=== PATIENT | male | born 1970 | race Caucasian/White ===

== ENCOUNTER 2016-07-17 09:11 | Emergency (ER) | payer OTHER ==
--- NOTE | 2016-07-17 10:21 | ED NURSING NOTES ---
Clinical Report - [facility]es [facility] [place] [address] 07/17/2016 9:15 [id number] TRI[facility] Triage time 09:25. Acuity: LEVEL 4. Chief Complaint: RIGHT UPPER EXTREMITY PAIN and NUMBNESS. Alert. No acute distress. RAMÓN COMA SCORE: [place] Coma Scale: 15- eyes open spontaneously (4); best verbal response- oriented x 4 (5); best motor response- obeys commands (6). --09:31 Talia Davies R.N. 09:25 07/17/16. BP: 137/84. HR: 65. RR: 16. O2 saturation: 95%. Temp: 97.9 F (oral). Pain level now: 06/15. --09:31 Talia Davies R.N. Weight: 111.5 kg stated. Height/Length: 71 inches Per Patient. BMI: 34.3. --09:28 Talia Davies R.N. Medications None. --09:27 Talia Davies R.N. Medication/allergy information source: the patient. --09:31 Talia Davies R.N. Allergies Penicillins. --09:27 Talia Davies R.N. History Arrived by private vehicle. Historian: patient. Unaccompanied. Primary physician (Kayla). An injury may have occurred. This occurred (about 1 month). 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 SOCIAL HX: Former smoker. No alcohol use or drug use. FALL RISK ASSESSMENT: Fall risk assessment completed. No fall risk identified. FUNCTIONAL ASSESSMENT: Functional assessment: no impairments noted. LEARNING NEEDS ASSESSMENT: The learning needs assessment revealed no barriers. --09:31 Talia Davies R.N. PROBLEMS: no known problems. ADDITIONAL SURGERIES: Rt hand. --09:28 Talia Davies R.N. Assessment GENERAL / NEURO / PSYCH: Alert. Oriented X 4. Appears in no acute distress. Patient appears calm and cooperative. RESPIRATORY: Respirations not labored. SKIN: Skin is warm and dry. --09:31 Talia Davies R.N. Interventions ID and allergy band on patient. To treatment room. --09:31 Talia Davies R.N. PHYSICAL ASSESSMENT 09:37 07/17/16. Ambulatory to room. Patient gowned. GENERAL / NEURO / PSYCH: Oriented X 4. Alert. Appears in no acute distress. EXTREMITIES: ( c/o pain in Rt wrist, moving up his Rt arm, states his Rt hand is "numb" "like it hasn't woken up this morning", stated this all starts "while I'm asleep"). SKIN: Skin is warm and dry. --09:37 Talia Davies R.N. NURSING PROGRESS NOTES 09:38 07/17/16. Call light placed in reach. Side rails up x 1. Bed placed in lowest position. Brakes of bed on. --09:38 Talia Davies R.N. 10:29 07/17/2016 Ibuprofen PO Tablets 800 mg given. Allergies verified and confirmed 5 rights. --10:34 Talia Davies R.N. 10:29 07/17/2016 Prednisone PO Tablets 60 mg given. Allergies verified and confirmed 5 rights. --10:34 Talia Davies R.N. 10:35. Velcro upper extremity splint applied to right wrist and left wrist by tech. Sensation intact and motor within normal limits. The patient is calm and resting quietly. Overall patient status is the same- he states feels the same. GENERAL / NEURO / PSYCH: Alert. Oriented X 4. RESPIRATORY: No respiratory distress. SKIN: Skin is warm and dry. --10:47 Talia Davies R.N. DISPOSITION / DISCHARGE Departure time: 1040. Condition at departure: stable. No learning barriers present. Discharge instructions provided and reviewed with the patient. Reviewed medication(s). Prescription(s) given to the patient. Activity restrictions (light lifting and rest) reviewed. Patient verbalized understanding. Written instructions provided in Egyptian. The patient was discharged home and unaccompanied at time of discharge. He left the Emergency Department ambulatory and via private vehicle. FALL RISK ASSESSMENT: Fall risk assessment completed. No fall risk identified. --10:46 Talia Davies R.N. 10:40 07/17/16. BP: 156/87. HR: 92. RR: 18. O2 saturation: 97% on room air. Temp: 98.4 F (oral). Pain level now: 07/15. --10:46 Talia Davies R.N. Locked/Released at 07/17/2016 10:48 by Talia Davies R.N.
--- NOTE | 2016-07-17 10:21 | ED CLINICAL REPORT ---
Clinical Report - Physicians/Mid Levels [facility] [address] [place] [address] 07/17/2016 9:15 Patient: EH WALKER Time Seen: 10:03 Jul 17 2016. Arrived- By private vehicle. Historian- patient. CPT: ER phys charges level 3 (#[id number]). HISTORY OF PRESENT ILLNESS Chief Complaint: UPPER EXTREMITY PAIN and ALTERED SENSATION and ; PROBLEM IN THE RIGHT UPPER EXTREMITY. Severity is described as being moderate in degree. It has become recently worse. The quality is noted to be aching and "pain". 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 Symptoms located in the area of the right forearm, right wrist and left wrist. No chest pain, difficulty breathing, swelling or motor loss. He has not had redness. Moderate sensory loss involving the right hand (on and off). Repetitive hand use at work. (Wakes up at night with pain and numbness in both hands/wrists.). Patient denies an injury. Similar symptoms previously: None. Recent medical care: Not recently seen/assessed. REVIEW OF SYSTEMS No fever, chills, headache or sore throat or throat. No cough, skin rash, enlarged lymph nodes, neck pain or abdominal pain. No nausea, vomiting, difficulty with urination, weakness or diabetic symptoms. No easy bruising or symptoms of hypothyroidism. All systems otherwise negative, except as recorded above. PAST HISTORY Rt hand surgery with pinning of finger. Problems: no known problems. Medications: None. Allergies: Penicillins. SOCIAL HISTORY Former smoker. No alcohol use or drug use. ADDITIONAL NOTES The nursing notes have been reviewed. PHYSICAL EXAM Vital Signs: 07/17/2016 09:25 BP: 137/84. HR: 65. RR: 16. O2 saturation: 95%. Temp: 97.9 F. Pain level now: 4/10. Appearance: Alert. Anxious. Patient in mild distress. Eyes: Eyes normal inspection. Neck: Normal inspection. Neck supple. (non-tender.). CVS: Normal heart rate and rhythm. Heart sounds normal. Respiratory: No respiratory distress. Back: Normal inspection. No tenderness. ROM normal. Skin: Skin intact. Skin warm. Normal skin color. Extremities: Right-sided and left-sided positive Tinel sign. Right wrist: moderate tenderness located in the volar aspect of the wrist. Neurovascular intact distally. (positive tinnels). No swelling, laceration, abrasion, ecchymosis or deformity. No joint effusion or limitation in ROM. Left wrist: mild tenderness located in the volar aspect of the wrist. Neurovascular intact distally. No swelling, laceration or abrasion. No joint effusion or limitation in ROM. Neuro: Oriented X 3. No motor deficit. No sensory deficit. Reflexes normal. PROGRESS AND PROCEDURES Course of Care: Pt with bilateral car pal tunnel, right greater than left. Splint applied to wrists. Pt will start meds and follow up with neurology. Patient/family counseled. Disposition: Discharged. Condition: stable. CLINICAL IMPRESSION Carpal tunnel syndrome right wrist and left wrist (right greater than left.). INSTRUCTIONS Wear canvas splint until better. Limit lifting. No strenuous activity. Warnings: Further evaluation is necessary. GENERAL WARNINGS: Return or contact your physician immediately if your condition worsens or changes unexpectedly, if not improving as expected, or if other problems arise. Prescription Medications: Ibuprofen 600mg tablets: take 1 tablet orally every 8 hours as needed for pain. Dispense thirty (30). No refills. prednisone 50 mg a day for 3 days. Follow-up: Follow up with a neurologist in one week. Call for the next available appointment. Understanding of the discharge instructions verbalized by patient. Follow-up with: Beto Garza MD, Family Practice, , [facility], [address] [place] [address], [facility] access hospital Follow up in one week. Call for an appointment. (Electronically signed by Kojo Estrada MD 07/17/2016 14:17)
--- NOTE | 2016-07-17 10:21 | ED CLINICAL REPORT ---
Clinical Report - Physicians/Mid Levels [facility] [address] [place] [address] 07/17/2016 9:15 Patient: EH WALKER Time Seen: 10:03 Jul 17 2016. Arrived- By private vehicle. Historian- patient. CPT: ER phys charges level 3 (#[id number]). HISTORY OF PRESENT ILLNESS Chief Complaint: UPPER EXTREMITY PAIN and ALTERED SENSATION and ; PROBLEM IN THE RIGHT UPPER EXTREMITY. Severity is described as being moderate in degree. It has become recently worse. The quality is noted to be aching and "pain". 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 Symptoms located in the area of the right forearm, right wrist and left wrist. No chest pain, difficulty breathing, swelling or motor loss. He has not had redness. Moderate sensory loss involving the right hand (on and off). Repetitive hand use at work. (Wakes up at night with pain and numbness in both hands/wrists.). Patient denies an injury. Similar symptoms previously: None. Recent medical care: Not recently seen/assessed. REVIEW OF SYSTEMS No fever, chills, headache or sore throat or throat. No cough, skin rash, enlarged lymph nodes, neck pain or abdominal pain. No nausea, vomiting, difficulty with urination, weakness or diabetic symptoms. No easy bruising or symptoms of hypothyroidism. All systems otherwise negative, except as recorded above. PAST HISTORY Rt hand surgery with pinning of finger. Problems: no known problems. Medications: None. Allergies: Penicillins. SOCIAL HISTORY Former smoker. No alcohol use or drug use. ADDITIONAL NOTES The nursing notes have been reviewed. PHYSICAL EXAM Vital Signs: 07/17/2016 09:25 BP: 137/84. HR: 65. RR: 16. O2 saturation: 95%. Temp: 97.9 F. Pain level now: 4/10. Appearance: Alert. Anxious. Patient in mild distress. Eyes: Eyes normal inspection. Neck: Normal inspection. Neck supple. (non-tender.). CVS: Normal heart rate and rhythm. Heart sounds normal. Respiratory: No respiratory distress. Back: Normal inspection. No tenderness. ROM normal. Skin: Skin intact. Skin warm. Normal skin color. Extremities: Right-sided and left-sided positive Tinel sign. Right wrist: moderate tenderness located in the volar aspect of the wrist. Neurovascular intact distally. (positive tinnels). No swelling, laceration, abrasion, ecchymosis or deformity. No joint effusion or limitation in ROM. Left wrist: mild tenderness located in the volar aspect of the wrist. Neurovascular intact distally. No swelling, laceration or abrasion. No joint effusion or limitation in ROM. Neuro: Oriented X 3. No motor deficit. No sensory deficit. Reflexes normal. PROGRESS AND PROCEDURES Course of Care: Pt with bilateral car pal tunnel, right greater than left. Splint applied to wrists. Pt will start meds and follow up with neurology. Patient/family counseled. Disposition: Discharged. Condition: stable. CLINICAL IMPRESSION Carpal tunnel syndrome right wrist and left wrist (right greater than left.). INSTRUCTIONS Wear canvas splint until better. Limit lifting. No strenuous activity. Warnings: Further evaluation is necessary. GENERAL WARNINGS: Return or contact your physician immediately if your condition worsens or changes unexpectedly, if not improving as expected, or if other problems arise. Prescription Medications: Ibuprofen 600mg tablets: take 1 tablet orally every 8 hours as needed for pain. Dispense thirty (30). No refills. prednisone 50 mg a day for 3 days. Follow-up: Follow up with a neurologist in one week. Call for the next available appointment. Understanding of the discharge instructions verbalized by patient. Follow-up with: Beto Garza MD, Family Practice, , [facility], [address] [place] [address], [facility] Follow up in one week. Call for an appointment. (Electronically signed by Kojo Estrada MD 07/17/2016 14:17)
--- NOTE | 2016-07-17 10:21 | ED ORDER SUMMARY ---
..... Patient: EH WALKER OrderSheet [facility] VisitID: [id number] [address] [place] [address] 46y, M Registration Date/Time: 07/17/2016 ORDER SHEET Weight: 111.5 kg (stated) Allergies: Penicillins GENERAL ORDERS: Splint (UE) (Right) (Velcro - wrist) (10:07/17/2016 En FERNANDEZ) (Ack 10:26 IJurca ER Tech1) (10:31 IJurca ER Tech1) Splint (UE) (Left) (Velcro - wrist) (:07/17/2016 IJurca ER Tech1 verbal order read back to En FERNANDEZ) (10:31 IJurca ER Tech1) MEDICATION ORDERS: Ibuprofen PO 800 mg (NOW) (10:07/17/2016 En FERNANDEZ) (Ack 10:22 Alexis R.N.) (10:34 Alexis R.N.) Prednisone PO 60 mg (NOW) (10:07/17/2016 En FERNANDEZ) (Ack 10:22 Alexis R.N.) (10:34 Alexis R.N.) IV FLUIDS: ORDER SHEET NOTES: [Electronically signed by Talia Davies R.N. (10:48 07/17/2016)] [Electronically signed by Kojo Estrada MD (14:17 07/17/2016)] [Electronically locked/signed by Talia Davies R.N. (10:48 07/17/2016)]
--- NOTE | 2016-07-17 10:21 | ED ORDER SUMMARY ---
..... Patient: EH WALKER OrderSheet [facility] VisitID: [id number] [address] [place] [address] 46y, M Registration Date/Time: 07/17/2016 ORDER SHEET Weight: 111.5 kg (stated) Allergies: Penicillins GENERAL ORDERS: Splint (UE) (Right) (Velcro - wrist) (10:07/17/2016 En FERNANDEZ) (Ack 10:26 IJurca ER Tech1) (10:31 IJurca ER Tech1) Splint (UE) (Left) (Velcro - wrist) (:07/17/2016 IJurca ER Tech1 verbal order read back to En FERNANDEZ) (10:31 IJurca ER Tech1) MEDICATION ORDERS: Ibuprofen PO 800 mg (NOW) (10:07/17/2016 En FERNANDEZ) (Ack 10:22 Alexis R.N.) (10:34 Alexis R.N.) Prednisone PO 60 mg (NOW) (10:07/17/2016 En FERNANDEZ) (Ack 10:22 Alexis R.N.) (10:34 Alexis R.N.) IV FLUIDS: ORDER SHEET NOTES: [Electronically signed by Talia Davies R.N. (10:48 07/17/2016)] [Electronically signed by Kojo Estrada MD (14:17 07/17/2016)] [Electronically locked/signed by Talia Davies R.N. (10:48 07/17/2016)]
--- NOTE | 2016-07-17 14:17 | ED DISCHARGE INSTRUCTIONS ---
Patient: EH WALKER General Instructions [facility] VisitID: [id number] [address] [place] [address] 46y, M Registration Date/Time: 07/17/2016 Carpal tunnel syndrome right wrist and left wrist (right greater than left.). INSTRUCTIONS Wear canvas splint until better. Limit lifting. No strenuous activity. Warnings: Further evaluation is necessary. GENERAL WARNINGS: Return or contact your physician immediately if your condition worsens or changes unexpectedly, if not improving as expected, or if other problems arise. Prescription Medications: Ibuprofen 600mg tablets: take 1 tablet orally every 8 hours as needed for pain. Dispense thirty (30). No refills. prednisone 50 mg a day for 3 days. Follow-up: Follow up with a neurologist in one week. Call for the next available appointment. Understanding of the discharge instructions verbalized by patient. Follow-up with: Beto Garza MD, [facility], , [facility], [address] [place] [address] [place] [address] Follow up in one week. Call for an appointment. ADDITIONAL INFORMATION Carpal Tunnel Syndrome Carpal tunnel syndrome is a painful condition of the wrist and arm. It is caused by pressure on the median nerve. The median nerve is one of the nerves that give feeling and movement to the hand. It passes through a tunnel in the wrist ("carpal tunnel"). This tunnel is made up of bones and ligaments. Narrowing of this tunnel or swelling of tissues inside the tunnel puts pressure on the median nerve. This causes numbness, pins and needles or electric shooting pains in the hand and forearm. Often the pain is worse at night and may awaken you from sleep. Carpal tunnel syndrome may occur during and with use of control pills. It is more common in workers who must bend their wrists frequently, and those who work with power tools that cause strong vibrations. Home Care: Rest the painful wrist. Avoid repeated bending of the wrist back and forth. This puts pressure on the median nerve. Avoid the use of power tools with strong vibrations. If you were given a splint, wear it at night while you sleep. You may also wear it during the day for comfort. Move the fingers and wrists often to avoid stiffness. Sometimes changes in the work place may relieve symptoms. If you type most of the day, changing the position of the keyboard or adding a wrist support may help. Your wrist should be in a neutral position and not bent back when typing. You may ibuprofen (Motrin, Advil) or naproxen (Aleve, Naprosyn) to treat pain and inflammation, unless another medicine was prescribed. If you can't take these medicines, acetaminophen (Tylenol) may help with the pain, but does not treat inflammation. [ NOTE: If you have chronic liver or kidney disease or ever had a stomach ulcer or GI bleeding, talk with your doctor before using these medicines.] Narcotic pain medicine will only give temporary relief and does not treat the problem. If pain continues, you may need an injection of a steroid drug into the wrist. If the above measures fail, you may require surgery to open the carpal tunnel and release the pressure on the trapped nerve. Follow Up with your doctor or this facility if the pain does not begin to improve within the next week. [NOTE: If X-rays were taken, they will be reviewed by a radiologist. You will be notified of any new findings that may affect your care.] Get Prompt Medical Attention if any of the following occur: Pain not improving with the above treatment Fingers or hand becomes cold, blue, numb or tingly The entire arm becomes swollen or weak Wrist Splint: Velcro A splint is designed to prevent movement of the bones, muscles and tendons of the wrist. Velcro wrist splints are used because of their comfort and convenience. In certain conditions, the splint can be removed when bathing or changing clothes. The condition you are being treated for will determine how long you should wear the splint and if it is safe to remove your splint before your next visit. If you are unsure, ask your nurse or doctor. Get Prompt Medical Attention if any of the following occur: -- Increased pain or swelling under the splint or in the hand or fingers -- Fingers or hand becomes cold, blue, numb or tingly You have been given the following additional information: Carpal Tunnel Wrist Splint, Velcro Limit lifting. No strenuous activity. (Electronically signed by Kojo Estrada MD 07/17/2016 14:17)
--- NOTE | 2016-07-17 14:17 | ED MAR SUMMARY ---
..... Medication Administration Record [facility] [address] [place] [address] Patient: EH WALKER Visit ID: [id number] 46y, M Weight: 111.5 kg Height/Length: 71 in BMI: 34.3 ALLERGIES: Penicillins Given 10:07/17/2016 Talia Davies R.N. Medication Administered: IBUPROFEN [PO], Dose: 800 mg Tablets PO. Medication Ordered: Ibuprofen PO 800 mg (NOW). Given 10:07/17/2016 Talia Davies RAdrianN. Medication Administered: PREDNISONE [PO], Dose: 60 mg Tablets PO. Medication Ordered: Prednisone PO 60 mg (NOW).
--- NOTE | 2016-07-17 14:17 | ED DISCHARGE INSTRUCTIONS ---
Patient: EH WALKER General Instructions [facility] VisitID: [id number] [address] [place] [address] 46y, M Registration Date/Time: 07/17/2016 Carpal tunnel syndrome right wrist and left wrist (right greater than left.). INSTRUCTIONS Wear canvas splint until better. Limit lifting. No strenuous activity. Warnings: Further evaluation is necessary. GENERAL WARNINGS: Return or contact your physician immediately if your condition worsens or changes unexpectedly, if not improving as expected, or if other problems arise. Prescription Medications: Ibuprofen 600mg tablets: take 1 tablet orally every 8 hours as needed for pain. Dispense thirty (30). No refills. prednisone 50 mg a day for 3 days. Follow-up: Follow up with a neurologist in one week. Call for the next available appointment. Understanding of the discharge instructions verbalized by patient. Follow-[facility] with: [facility], , [facility], [address] [place] [address] [place] [address] Follow up in one week. Call for an appointment. ADDITIONAL INFORMATION Carpal Tunnel Syndrome Carpal tunnel syndrome is a painful condition of the wrist and arm. It is caused by pressure on the median nerve. The median nerve is one of the nerves that give feeling and movement to the hand. It passes through a tunnel in the wrist ("carpal tunnel"). This tunnel is made up of bones and ligaments. Narrowing of this tunnel or swelling of tissues inside the tunnel puts pressure on the median nerve. This causes numbness, pins and needles or electric shooting pains in the hand and forearm. Often the pain is worse at night and may awaken you from sleep. Carpal tunnel syndrome may occur during and with use of control pills. It is more common in workers who must bend their wrists frequently, and those who work with power tools that cause strong vibrations. Home Care: Rest the painful wrist. Avoid repeated bending of the wrist back and forth. This puts pressure on the median nerve. Avoid the use of power tools with strong vibrations. If you were given a splint, wear it at night while you sleep. You may also wear it during the day for comfort. Move the fingers and wrists often to avoid stiffness. Sometimes changes in the work place may relieve symptoms. If you type most of the day, changing the position of the keyboard or adding a wrist support may help. Your wrist should be in a neutral position and not bent back when typing. You may ibuprofen (Motrin, Advil) or naproxen (Aleve, Naprosyn) to treat pain and inflammation, unless another medicine was prescribed. If you can't take these medicines, acetaminophen (Tylenol) may help with the pain, but does not treat inflammation. [ NOTE: If you have chronic liver or kidney disease or ever had a stomach ulcer or GI bleeding, talk with your doctor before using these medicines.] Narcotic pain medicine will only give temporary relief and does not treat the problem. If pain continues, you may need an injection of a steroid drug into the wrist. If the above measures fail, you may require surgery to open the carpal tunnel and release the pressure on the trapped nerve. Follow Up with your doctor or this facility if the pain does not begin to improve within the next week. [NOTE: If X-rays were taken, they will be reviewed by a radiologist. You will be notified of any new findings that may affect your care.] Get Prompt Medical Attention if any of the following occur: Pain not improving with the above treatment Fingers or hand becomes cold, blue, numb or tingly The entire arm becomes swollen or weak Wrist Splint: Velcro A splint is designed to prevent movement of the bones, muscles and tendons of the wrist. Velcro wrist splints are used because of their comfort and convenience. In certain conditions, the splint can be removed when bathing or changing clothes. The condition you are being treated for will determine how long you should wear the splint and if it is safe to remove your splint before your next visit. If you are unsure, ask your nurse or doctor. Get Prompt Medical Attention if any of the following occur: -- Increased pain or swelling under the splint or in the hand or fingers -- Fingers or hand becomes cold, blue, numb or tingly You have been given the following additional information: Carpal Tunnel Wrist Splint, Velcro Limit lifting. No strenuous activity. (Electronically signed by Kojo Estrada MD 07/17/2016 14:17)
--- NOTE | 2016-07-17 14:17 | ED MAR SUMMARY ---
..... Medication Administration Record [facility] [address] [place] [address] Patient: EH WALKER Visit ID: [id number] 46y, M Weight: 111.5 kg Height/Length: 71 in BMI: 34.3 ALLERGIES: Penicillins Given 10:07/17/2016 Talia Davies R.N. Medication Administered: IBUPROFEN [PO], Dose: 800 mg Tablets PO. Medication Ordered: Ibuprofen PO 800 mg (NOW). Given 10:07/17/2016 Talia Davies RAdrianN. Medication Administered: PREDNISONE [PO], Dose: 60 mg Tablets PO. Medication Ordered: Prednisone PO 60 mg (NOW).
--- NOTE | 2016-07-17 14:17 | ED MED RECONCILIATION SUMMARY ---
Patient: EH WALKER Medication Reconciliation Report [facility] VisitID: [id number] [address] [place] [address] 46y, M Registration Date/Time: 07/17/2016 Weight: 111.5 kg Height/Length: 71 in. BMI: 34.3 ALLERGIES: Penicillins The patient's Home Medications are listed below: NONE. The source(s) of the original Home Medication information: patient The following Medications were given to the patient in the Emergency Department: Ibuprofen [PO] PO 800 mg, administered: 07/17/2016 10:29:00 AM Prednisone [PO] PO 60 mg, administered: 07/17/2016 10:29:00 AM The following Medications were prescribed to the patient: prednisone 50 mg a day for 3 days. -- Kojo Estrada MD Ibuprofen 600mg tablets: take 1 tablet orally every 8 hours as needed for pain. Dispense thirty (30). No refills. -- Kojo Estrada MD
--- NOTE | 2016-07-17 14:17 | ED MED RECONCILIATION SUMMARY ---
Patient: EH WALKER Medication Reconciliation Report [facility] VisitID: [id number] [address] [place] [address] 46y, M Registration Date/Time: 07/17/2016 Weight: 111.5 kg Height/Length: 71 in. BMI: 34.3 ALLERGIES: Penicillins The patient's Home Medications are listed below: NONE. The source(s) of the original Home Medication information: patient The following Medications were given to the patient in the Emergency Department: Ibuprofen [PO] PO 800 mg, administered: 07/17/2016 10:29:00 AM Prednisone [PO] PO 60 mg, administered: 07/17/2016 10:29:00 AM The following Medications were prescribed to the patient: prednisone 50 mg a day for 3 days. -- Kojo Estrada MD Ibuprofen 600mg tablets: take 1 tablet orally every 8 hours as needed for pain. Dispense thirty (30). No refills. -- Kojo Estrada MD
== END 2016-07-17 10:40 | disposition home or self-care (01) ==
LOC: ED SRH 09:11
DX: G56.03 Carpal tunnel syndrome, bilateral upper limbs (principal); Z87.891 Personal history of nicotine dependence; Z88.0 Allergy status to penicillin

== ENCOUNTER 2016-08-17 07:00 | Emergency (ER) | payer OTHER ==
--- NOTE | 2016-08-17 08:21 | DIAGNOSTIC IMAGING REPORT ---
PROCEDURE: XR CHEST 1 VIEW INDICATION: HEMOPTYSIS TECHNIQUE: Single view chest. 07:36 hours COMPARISON: None FINDINGS: Cardiomediastinal contour and central vessels are normal. Clear lungs. No effusion or pneumothorax. Intact osseous structures. IMPRESSION: 1. No evidence of acute cardiopulmonary disease.
--- NOTE | 2016-08-17 08:35 | ED NURSING NOTES ---
Clinical Report - Nurses [place] [address] [place] [address] 08/17/2016 7:00 [id number] Triage time 07:09. Acuity: LEVEL 3. Chief Complaint: (coughing up blood). Alert. No acute distress. RAMÓN COMA SCORE: Arion Coma Scale: 15- eyes open spontaneously (4); best verbal response- oriented x 4 (5); best motor response- obeys commands (6). --07:22 Talia Davies R.N. 07:09 08/17/16. BP: 144/88. HR: 79. RR: 15. O2 saturation: 96%. Temp: 98.7 F (oral). Pain level now: 07/15. --07:22 Talia Davies R.N. Weight: 112 kg stated. Height/Length: 71 inches Per Patient. BMI: 34.5. --07:16 Talia Davies R.N. Medications Albuterol Sulfate HFA Inhalation. --07:11 Talia Davies R.N. Zyrtec. --07:11 Talia Davies R.N. ASA Oral 81 mg, daily. --07:11 Talia Davies R.N. Medication/allergy information source: the patient. --07:22 Talia Davies R.N. Allergies Penicillins. --07:12 Talia Davies R.N. History Arrived by private vehicle. Historian: patient. Unaccompanied. Primary physician (Luis Daniel). This started yesterday. ( but was sick last week at [place], just finished Prednisone). SOCIAL HX: Former smoker. No alcohol use or drug use. FALL RISK ASSESSMENT: Fall risk assessment completed. No fall risk identified. FUNCTIONAL ASSESSMENT: Functional assessment: no impairments noted. LEARNING NEEDS ASSESSMENT: The learning needs assessment revealed no barriers. --07:22 Talia Davies R.N. PROBLEMS: Carpal Tunnel Syndrome. --07:12 Talia Davies R.N. Allergies. --07:15 Talia Davies R.N. ADDITIONAL SURGERIES: Rt hand. --07:12 Talia Davies R.N. Assessment GENERAL / NEURO / PSYCH: Alert. Oriented X 4. Appears in no acute distress. Patient appears calm and cooperative. RESPIRATORY: Respirations not labored. SKIN: Skin is warm and dry. --07:22 Talia Davies R.N. Interventions ID and allergy band on patient. To treatment room. --07:22 Talia Davies R.N. PHYSICAL ASSESSMENT 07:14 08/17/16. Ambulatory to room. Patient gowned. GENERAL / NEURO / PSYCH: Alert. Oriented X 4. Appears in no acute distress. RESPIRATORY: Respirations not labored. SKIN: Skin is warm and dry. --07:14 Talia Davies R.N. NURSING PROGRESS NOTES 07:14 08/17/16. ekg monitor tech, pulse oximeter and NIBP monitor placed on patient. Patient gowned. Head of bed elevated. Call light placed in reach. Side rails up x 1. Bed placed in lowest position. Brakes of bed on. --07:14 Talia Davies R.N. 07:24 08/17/2016 Site #1 started via IV in the right antecubital space with an 18g angiocath, with aseptic technique and good blood return; one attempt. Blood drawn: rainbow set. Saline lock flushed with 10 mL saline. --07:34 Oma Bullock R.N. 07:36 08/17/2016 Duoneb (Ipratropium-Albuterol) Neb TX 1 unit dose given. --07:36 Yasmeen Charles EKG time: (727). EKG was ordered, performed by a tech and shown to the ED physician. --07:52 Adri Archer ER Tech1 08:45 08/17/2016 Albuterol Neb TX 1 unit dose given. --08:45 Yasmeen Charles 08:15. The patient is calm and resting quietly. Overall patient status is improved- he states feels better (had his respiratory tx and feels better). RESPIRATORY: No respiratory distress. SKIN: Skin is warm and dry. --09:28 Talia Davies R.N. 09:15. Reassessment after procedure. He is calm. Overall patient status is improved- he states feels better. RESPIRATORY: No respiratory distress. SKIN: Skin is warm and dry. --:28 Talia Davies R.N. 08:00 08/17/16. BP: 134/87. HR: 77. RR: 18. O2 saturation: 97% on room air. Temp: 97.9 F. Pain level now: 04/17. --09:53 Talia Davies R.N. DISPOSITION / DISCHARGE Departure time: 914. Condition at departure: improved and stable. No learning barriers present. Discharge instructions provided and reviewed with the patient. Reviewed medication(s). Prescription(s) given to the patient. Patient verbalized understanding. Written instructions provided in [place]. The patient was discharged home and unaccompanied at time of discharge. He left the Emergency Department ambulatory and via private vehicle. FALL RISK ASSESSMENT: Fall risk assessment completed. No fall risk identified. --09:26 Talia Davies R.N. 09:25 08/17/16. BP: 149/81. HR: 80. RR: 18. O2 saturation: 97% on room air. Pain level now: 04/17. --09:26 Talia Davies R.N. 09:15 08/17/2016 Site #1 removed upon discharge. Catheter intact. Bandaid applied. --09:29 Talia Davies R.N. Locked/Released at 08/17/2016 9:56 by Talia Davies R.N.
--- NOTE | 2016-08-17 08:35 | ED NURSING NOTES ---
Clinical Report - Nurses [place] [address] [place] [address] 08/17/2016 7:00 [id number] Triage time 07:09. Acuity: LEVEL 3. Chief Complaint: (coughing up blood). Alert. No acute distress. RAMÓN COMA SCORE: Cebolla Coma Scale: 15- eyes open spontaneously (4); best verbal response- oriented x 4 (5); best motor response- obeys commands (6). --07:22 Talia Davies R.N. 07:09 08/17/16. BP: 144/88. HR: 79. RR: 15. O2 saturation: 96%. Temp: 98.7 F (oral). Pain level now: 07/15. --07:22 Talia Davies R.N. Weight: 112 kg stated. Height/Length: 71 inches Per Patient. BMI: 34.5. --07:16 Talia Davies R.N. Medications Albuterol Sulfate HFA Inhalation. --07:11 Talia Davies R.N. Zyrtec. --07:11 Talia Davies R.N. ASA Oral 81 mg, daily. --07:11 Talia Davies R.N. Medication/allergy information source: the patient. --07:22 Talia Davies R.N. Allergies Penicillins. --07:12 Talia Davies R.N. History Arrived by private vehicle. Historian: patient. Unaccompanied. Primary physician (Luis Daniel). This started yesterday. ( but was sick last week at [place], just finished Prednisone). SOCIAL HX: Former smoker. No alcohol use or drug use. FALL RISK ASSESSMENT: Fall risk assessment completed. No fall risk identified. FUNCTIONAL ASSESSMENT: Functional assessment: no impairments noted. LEARNING NEEDS ASSESSMENT: The learning needs assessment revealed no barriers. --07:22 Talia Davies R.N. PROBLEMS: Carpal Tunnel Syndrome. --07:12 Talia Davies R.N. Allergies. --07:15 Talia Davies R.N. ADDITIONAL SURGERIES: Rt hand. --07:12 Talia Davies R.N. Assessment GENERAL / NEURO / PSYCH: Alert. Oriented X 4. Appears in no acute distress. Patient appears calm and cooperative. RESPIRATORY: Respirations not labored. SKIN: Skin is warm and dry. --07:22 Talia Daives R.N. Interventions ID and allergy band on patient. To treatment room. --07:22 Talia Davies R.N. PHYSICAL ASSESSMENT 07:14 08/17/16. Ambulatory to room. Patient gowned. GENERAL / NEURO / PSYCH: Alert. Oriented X 4. Appears in no acute distress. RESPIRATORY: Respirations not labored. SKIN: Skin is warm and dry. --07:14 Talia Davies R.N. NURSING PROGRESS NOTES 07:14 08/17/16. rosin barrel filler, pulse oximeter and NIBP monitor placed on patient. Patient gowned. Head of bed elevated. Call light placed in reach. Side rails up x 1. Bed placed in lowest position. Brakes of bed on. --07:14 Talia Davies R.N. 07:24 08/17/2016 Site #1 started via IV in the right antecubital space with an 18g angiocath, with aseptic technique and good blood return; one attempt. Blood drawn: rainbow set. Saline lock flushed with 10 mL saline. --07:34 Oma Bullock R.N. 07:36 08/17/2016 Duoneb (Ipratropium-Albuterol) Neb TX 1 unit dose given. --07:36 Yasmeen Charles EKG time: (727). EKG was ordered, performed by a tech and shown to the ED physician. --07:52 Adri Archer ER Tech1 08:45 08/17/2016 Albuterol Neb TX 1 unit dose given. --08:45 Yasmeen Charles 08:15. The patient is calm and resting quietly. Overall patient status is improved- he states feels better (had his respiratory tx and feels better). RESPIRATORY: No respiratory distress. SKIN: Skin is warm and dry. --09:28 Talia Davies R.N. 09:15. Reassessment after procedure. He is calm. Overall patient status is improved- he states feels better. RESPIRATORY: No respiratory distress. SKIN: Skin is warm and dry. --:28 Talia Davies R.N. 08:00 08/17/16. BP: 134/87. HR: 77. RR: 18. O2 saturation: 97% on room air. Temp: 97.9 F. Pain level now: 04/17. --09:53 Talia Davies R.N. DISPOSITION / DISCHARGE Departure time: 914. Condition at departure: improved and stable. No learning barriers present. Discharge instructions provided and reviewed with the patient. Reviewed medication(s). Prescription(s) given to the patient. Patient verbalized understanding. Written instructions provided in Moldovan. The patient was discharged home and unaccompanied at time of discharge. He left the Emergency Department ambulatory and via private vehicle. FALL RISK ASSESSMENT: Fall risk assessment completed. No fall risk identified. --09:26 Talia Davies R.N. 09:25 08/17/16. BP: 149/81. HR: 80. RR: 18. O2 saturation: 97% on room air. Pain level now: 04/17. --09:26 Talia Davies R.N. 09:15 08/17/2016 Site #1 removed upon discharge. Catheter intact. Bandaid applied. --09:29 Talia aDvies R.N. Locked/Released at 08/17/2016 9:56 by Talia Davies R.N.
--- NOTE | 2016-08-17 08:35 | ED ORDER SUMMARY ---
..... Patient: EH WALKER OrderSheet [facility] VisitID: [id number] [place] [address] 46y, M Registration Date/Time: 08/17/2016 ORDER SHEET Weight: 112.0 kg (stated) Allergies: Penicillins GENERAL ORDERS: Chest 1V Urgent (07:08/17/2016 Tash Flowers) (Ack 7:21 PWeiler ER Tech1) (7:36 PWeiler ER Tech1) Tie Inspector (Continuous) (CP) (07:08/17/2016 Tash Flowers) (7:35 LAbe R.N.) CBC w Diff Urgent (07:08/17/2016 Tash Flowers) (Ack 7:21 PWeiler ER Tech1) (7:35 LAbe R.N.) CMP Urgent (07:08/17/2016 Tash Flowers) (Ack 7:21 PWeiler ER Tech1) (7:35 LAbe R.N.) PT with INR Urgent (07:08/17/2016 Tash Flowers) (Ack 7:21 PWeiler ER Tech1) (7:35 LAbe R.N.) PTT Urgent (07:08/17/2016 Tash Flowers) (Ack 7:21 PWeiler ER Tech1) (7:35 LAbe R.N.) D-Dimer Urgent (07:08/17/2016 Tash Flowers) (Ack 7:21 PWeiler ER Tech1) (7:35 LAbe R.N.) Troponin-I Urgent (07:08/17/2016 Tash Flowers) (Ack 7:21 PWeiler ER Tech1) (7:35 LAbe R.N.) Pulse oximeter (07:08/17/2016 Tash Flowers) (7:35 LAbe R.N.) EKG - ER Stat (07:08/17/2016 Tash Flowers) (Ack 7:21 PWeiler ER Tech1) (7:35 LAbe R.N.) MEDICATION ORDERS: DuoNeb Neb Tx 1 unit dose (NOW) (07:19 08/17/2016 Tash Flowers) (7:36 KEpting) Albuterol Neb Tx 2.5 mg (once now) (08:41 08/17/2016 Tash Flowers) (8:45 KEpting) IV FLUIDS: IV Saline Lock (07:19 08/17/2016 Tash Flowers) (Ack 7:35 LAbe R.NAdrian) ORDER SHEET NOTES: [Electronically signed by Talia Davies R.N. (09:56 08/17/2016)] [Electronically signed by Elpidio Espinoza Dr. (17:51 08/18/2016)] [Electronically locked/signed by Talia Davies R.N. (09:56 08/17/2016)]
--- NOTE | 2016-08-17 08:35 | ED ORDER SUMMARY ---
..... Patient: EH WALKER OrderSheet [facility] VisitID: [id number] [place] [address] 46y, M Registration Date/Time: 08/17/2016 ORDER SHEET Weight: 112.0 kg (stated) Allergies: Penicillins GENERAL ORDERS: Chest 1V Urgent (07:08/17/2016 Tash Flowers) (Ack 7:21 PWeiler ER Tech1) (7:36 PWeiler ER Tech1) Transportation Worker (Continuous) (CP) (07:08/17/2016 Tash Flowers) (7:35 LAbe R.N.) CBC w Diff Urgent (07:08/17/2016 Tash Flowers) (Ack 7:21 PWeiler ER Tech1) (7:35 LAbe R.N.) CMP Urgent (07:08/17/2016 Tash Flowers) (Ack 7:21 PWeiler ER Tech1) (7:35 LAbe R.N.) PT with INR Urgent (07:08/17/2016 Tash Flowers) (Ack 7:21 PWeiler ER Tech1) (7:35 LAbe R.N.) PTT Urgent (07:08/17/2016 Tash Flowers) (Ack 7:21 PWeiler ER Tech1) (7:35 LAbe R.N.) D-Dimer Urgent (07:08/17/2016 Tash Flowers) (Ack 7:21 PWeiler ER Tech1) (7:35 LAbe R.N.) Troponin-I Urgent (07:08/17/2016 Tash Flowers) (Ack 7:21 PWeiler ER Tech1) (7:35 LAbe R.N.) Pulse oximeter (07:08/17/2016 Tash Flowers) (7:35 LAbe R.N.) EKG - ER Stat (07:08/17/2016 Tash Flowers) (Ack 7:21 PWeiler ER Tech1) (7:35 LAbe R.N.) MEDICATION ORDERS: DuoNeb Neb Tx 1 unit dose (NOW) (07:19 08/17/2016 Tash Flowers) (7:36 KEpting) Albuterol Neb Tx 2.5 mg (once now) (08:41 08/17/2016 Tash Flowers) (8:45 KEpting) IV FLUIDS: IV Saline Lock (07:19 08/17/2016 Tash Flowers) (Ack 7:35 LAbe R.NAdrian) ORDER SHEET NOTES: [Electronically signed by Talia Davies R.N. (09:56 08/17/2016)] [Electronically signed by Elpidio Espinoza Dr. (17:51 08/18/2016)] [Electronically locked/signed by Talia Davies R.N. (09:56 08/17/2016)]
--- NOTE | 2016-08-17 08:35 | ED CLINICAL REPORT ---
Clinical Report - Physicians/Mid Levels [facility] [address] [place] [address] 08/17/2016 7:00 Patient: EH WALKER Time Seen: 0710. Arrived- By private vehicle. Historian- patient. HISTORY OF PRESENT ILLNESS Chief Complaint: COUGH. coughing up blood. This started today and is still present. It was abrupt in onset and has been intermittent but is not gone now. The illness is described as moderate. The patient has had a cough, chest discomfort, difficulty breathing, nasal congestion and sinus pressure. He has had a nasal discharge. No fever, muscle aches or chills. (states it feels like seasonal allergies. no hx of DVT/PE, leg swelling, recent surgery/trauma, travel, hormone replacement, or cancer. No known exposure to TB. No travel out of country.). Additional history - No known contact with a sick individual. No recent travel. Similar symptoms previously: None. Recent medical care: The patient was seen recently in the emergency department (outside facility). ( prescribed albuterol. states he started to cough up blood after using the inhaler prescribed.). REVIEW OF SYSTEMS No headache, nausea, vomiting, pedal edema or calf pain. No skin rash. All systems otherwise negative, except as recorded above. PAST HISTORY See nurses notes. Medications: ASA Oral 81 mg, daily. Zyrtec. Albuterol Sulfate HFA Inhalation. Allergies: Penicillins. SOCIAL HISTORY Former smoker. No alcohol use or drug use. No recent travel. Is a local resident. ADDITIONAL NOTES The nursing notes have been reviewed. PHYSICAL EXAM Appearance: Alert. No acute distress. Eyes: Pupils equal, round and reactive to light. Eyes normal inspection. ENT: Ears normal. Nose normal. Pharynx normal. Uvula midline. Neck: Normal inspection. Neck supple. No meningeal signs. CVS: Normal heart rate and rhythm. Heart sounds normal. Pulses normal. Respiratory: No respiratory distress. Breath sounds normal. No rales, rhonchi, wheezes or stridor. Abdomen: Soft and nontender. Skin: Skin warm and dry. Normal skin color. No rash. Normal skin turgor. Extremities: Extremities exhibit normal ROM. No lower extremity edema. Neuro: Oriented X 3. No motor deficit. No sensory deficit. LABS, X-RAYS, AND EKG EKG: No acute process. No acute ischemia. Normal EKG. Normal sinus rhythm. Normal P waves. Normal WICHO. Normal QRS complex. Normal axis. Normal ST and T waves, QT and QTc. The study has been interpreted contemporaneously. The study has been independently viewed by me. The EKG appears to be a good tracing. Chest X-ray: (PROCEDURE: XR CHEST 1 VIEW INDICATION: HEMOPTYSIS TECHNIQUE: Single view chest. 07:36 hours COMPARISON: None FINDINGS: Cardiomediastinal contour and central vessels are normal. Clear lungs. No effusion or pneumothorax. Intact osseous structures. IMPRESSION: 1. No evidence of acute cardiopulmonary disease.). Views: AP (portable). The X-rays were independently viewed by me and interpreted by the radiologist. The X-rays were discussed with the radiologist (via pacs). Laboratory Tests: CBC w Diff: (BEATRIZ: 08/17/2016 07:26) ( [facility] 08[facility]17[facility]2016 07[facility]34) Final results Test Result Flag Units (Reference) WHITE BLOOD COUNT 8.6 K/uL (4.5-11.5) RED BLOOD COUNT 5.11 M/uL (4.50-5.90) HEMOGLOBIN 14.8 gm/dL (13.5-17.5) HEMATOCRIT 44.8 % (41.0-53.0) MEAN CELL VOLUME 88 fL (80-100) MEAN CORPUSCULAR HGB 29 pg (26-34) MEAN CORPUSCULAR HGB CONC 33 g/dL (31-37) RED CELL DISTRIBUTION WIDTH 13.3 % (11.6-14.8) PLATELET COUNT 166 K/uL (150-400) NEUTROPHIL % 55.0 % (50-75) LYMPH % 28.3 % (25-40) MONO % 12.2 % (3-14) EOSINOPHIL % 3.8 % (0-4) BASOPHIL % 0.7 % (0-2) PT with INR: (BEATRIZ: 08/17/2016 07:26) ( IlgRcvd 08/17/2016 07:58) Final results Test Result Flag Units (Reference) INR 1.0 (0.8-1.2) Low Intensity Therapy: INR 1.5-2.0 PT range 18.5-23.1Mod.Intensity Therapy: INR 2.0-3.0 PT range 23.1-31.5High Intensity Therapy: INR 2.5-3.5 PT range 27.4-35.5High Intensity Therapy 2: INR 3.0-4.0 PT range 31.5-39.3 APTT 28 SECONDS (24-34) D-DIMER QUANTITATIVE < 0.27 L ug/mLFEU (0.27-0.52) The primary value of this quantitative assay relates toits negative predictive value (i.e. exclusion) of pulmonaryembolism/deep vein thrombosis/DIC.Elevated levels of d-dimer may also occur with:, age, cancer, inflammation, liver disease,post-op, infection, hematoma, coronary disease, peripheralarteriopathy, bleeding disorders and thrombolytic treatment.Results should be correlated with other clinical andradiological data.Testing Methodology: Latex Immunoassay CMP: (BEATRIZ: 08/17/2016 07:26) ( MsgRcvd 08/17/2016 08:00) Final results Test Result Flag Units (Reference) GLUCOSE 118 H mg/dL (70-110) BUN 15 mg/dL (7-18) CREATININE 1.1 mg/dL (0.6-1.3) Estimated GFR >60 mL/min Estimated GFR- >60 mL/min Note: Persistent reduction over 3 months in eGFR<60 mL/min/1.73 m2 defines CKD. Patients with eGFR values>=60 mL/min/1.73 m2 may also have CKD if evidence ofpersistent proteinuria. Additional information may be foundat www.kidney.org. SODIUM 144 mmol/L (136-145) POTASSIUM 4.2 mmol/L (3.5-5.1) CHLORIDE 109 H mmol/L (98-107) CARBON DIOXIDE 25 mmol/L (21-32) CALCIUM 9.3 mg/dL (8.5-10.1) TOTAL PROTEIN 7.0 g/dL (6.4-8.2) ALBUMIN 3.8 g/dL (3.3-5.0) BILIRUBIN, TOTAL 0.2 mg/dL (0.0-1.0) ALKALINE PHOSPHATASE 116 U/L (46-116) AST (SGOT) 12 L U/L (15-37) ALT (SGPT) 40 U/L (12-78) TROPONIN I <0.05 ng/mL (0.00-1.5) TROPONIN REFERENCE RANGE:<0.1 NEGATIVE0.1-1.5 INDETERMINANT>1.5 POSITIVE . PROGRESS AND PROCEDURES Course of Care: The patient is a 46-year-old male with past medical history significant for what he describes as Bronchitis presenting for evaluation of hemoptysis. Patient is also reporting pleuritic type chest pain. Patient will be evaluated for pulmonary embolism and acute myocardial infarction. Chest x-ray and EKG have been ordered. Patient is resting in bed and in no acute distress. Because the patient's breathing symptoms, abreathing treatment has been ordered. patient is agreeable to the treatment and plan. The patient's workup was noted for the findings above. No acute outer maladies on patient's d-dimer or troponin. Correlation profiles also noted to be negative. No acute findings on patient's chest x-ray. The patient had reported significant improvement with breathing treatment. Patient was expressing interest in the respiratory therapist. Respiratory therapy had explained to me that he patient had felt that he was coming onto her. No inappropriate behavior noted however. Because the patient's negative workup here in the emergency department, patient was being readied for discharge. Patient didn't bed and resting in no acute distress. Repeat examination continues to be benign and reassuring. At this time, patient had requested another breathing treatment. Had questioned the validity of the patient's request given theincident earlier with the respiratory therapist however patient did have bronchitis and a inhaler treatment with subjective improvement with breathing treatment. A last breathing treatment was ordered for the patient. Discussed with the patient is workup in the emergency department including diagnosis, home care, follow-up, and return precautions. All questions have been answered. The patient expressed understanding of these instructions and was agreeable to treatment. Patient's hemoptysis likely due to bronchitis. Disposition: Discharged. Condition: good. CLINICAL IMPRESSION 08/17/2016 07:09 BP: 144/88. HR: 79. RR: 15. O2 saturation: 96%. Temp: 98.7 F. Pain level now: 5/10. Minor hemoptysis (acute). Blood pressure normal. Oxygen saturation normal. Acute bronchitis. Acute bronchospasm INSTRUCTIONS Warnings: GENERAL WARNINGS: Return or contact your physician immediately if your condition worsens or changes unexpectedly, if not improving as expected, or if other problems arise. Specifically return if pain, vomiting, bleeding, breathing difficulty or fever. Your Current Medications: CONTINUE TAKING THE FOLLOWING MEDICATIONS: Albuterol Sulfate HFA Inhalation. ASA Oral : 81 mg daily. Zyrtec*. Prescription Medications: Phenergan w/ Codeine 10mg / 6.25mg per 5 mL: take 1-2 teaspoons every 6 hours as needed for pain or cough. Dispense sixty (60) mL. No refill. Substitution is permissible. Follow-up: Return to the emergency department as needed. Follow up with your doctor in three days. Reason for referral: recheck today's concerns. Summary of care provided to patient via paper. Screening today revealed the patient's blood pressure to be in the normal range. The patient should follow up with a primary care provider for blood pressure management. Understanding of the discharge instructions verbalized by patient. (Electronically signed by Elpidio Espinoza Dr. 08/18/2016 17:51)
--- NOTE | 2016-08-18 17:52 | ED MAR SUMMARY ---
..... Medication Administration Record [facility] [address] [place] [address] Patient: EH WALKER Visit ID: [id number] 46y, M Weight: 112.0 kg Height/Length: 71 in BMI: 34.5 ALLERGIES: Penicillins Given 07:36 08/17/2016 Yasmeen Charles, Medication Administered: DUONEB [NEB TX] (IPRATROPIUM-ALBUTEROL), Dose: 1 unit dose Neb TX. Medication Ordered: DuoNeb Neb Tx 1 unit dose (NOW). Given 08:45 08/17/2016 Yasmeen Charles, Medication Administered: ALBUTEROL [NEB TX], Dose: 1 unit dose Neb TX. Medication Ordered: Albuterol Neb Tx 2.5 mg (once now).
--- NOTE | 2016-08-18 17:52 | ED MED RECONCILIATION SUMMARY ---
Patient: EH WALKER Medication Reconciliation Report VisitID: [id number] [address] [place] [address] 46y, M Registration Date/Time: 08/17/2016 Weight: 112.0 kg Height/Length: 71 in. BMI: 34.5 ALLERGIES: Penicillins The patient's Home Medications are listed below: CONTINUE TAKING THE FOLLOWING MEDICATIONS: Albuterol Sulfate HFA Inhalation ASA Oral 81 mg, daily Zyrtec The source(s) of the original Home Medication information: patient The following Medications were given to the patient in the Emergency Department: Duoneb [Neb Tx] Neb TX 1 unit dose, administered: 08/17/2016 7:36:00 AM Albuterol [Neb Tx] Neb TX 1 unit dose, administered: 08/17/2016 8:45:00 AM The following Medications were prescribed to the patient: Phenergan w/ Codeine 10mg / 6.25mg per 5 mL: take 1-2 teaspoons every 6 hours as needed for pain or cough. Dispense sixty (60) mL. No refill. Substitution is permissible. -- Elpidio Espinoza Dr.
--- NOTE | 2016-08-18 17:52 | ED MED RECONCILIATION SUMMARY ---
Patient: EH WALKER Medication Reconciliation Report [facility] VisitID: [id number] [address] [place] [address] 46y, M Registration Date/Time: 08/17/2016 Weight: 112.0 kg Height/Length: 71 in. BMI: 34.5 ALLERGIES: Penicillins The patient's Home Medications are listed below: CONTINUE TAKING THE FOLLOWING MEDICATIONS: Albuterol Sulfate HFA Inhalation ASA Oral 81 mg, daily Zyrtec The source(s) of the original Home Medication information: patient The following Medications were given to the patient in the Emergency Department: Duoneb [Neb Tx] Neb TX 1 unit dose, administered: 08/17/2016 7:36:00 AM Albuterol [Neb Tx] Neb TX 1 unit dose, administered: 08/17/2016 8:45:00 AM The following Medications were prescribed to the patient: Phenergan w/ Codeine 10mg / 6.25mg per 5 mL: take 1-2 teaspoons every 6 hours as needed for pain or cough. Dispense sixty (60) mL. No refill. Substitution is permissible. -- Elpidio Espinoza Dr.
--- NOTE | 2016-08-18 17:52 | ED MAR SUMMARY ---
..... Medication Administration Record [facility] [address] [place] [address] Patient: EH WALKER Visit ID: [id number] 46y, M Weight: 112.0 kg Height/Length: 71 in BMI: 34.5 ALLERGIES: Penicillins Given 07:36 08/17/2016 Yasmeen Charles, Medication Administered: DUONEB [NEB TX] (IPRATROPIUM-ALBUTEROL), Dose: 1 unit dose Neb TX. Medication Ordered: DuoNeb Neb Tx 1 unit dose (NOW). Given 08:45 08/17/2016 Yasmeen Charles, Medication Administered: ALBUTEROL [NEB TX], Dose: 1 unit dose Neb TX. Medication Ordered: Albuterol Neb Tx 2.5 mg (once now).
--- NOTE | 2016-08-18 17:52 | ED DISCHARGE INSTRUCTIONS ---
Patient: EH WALKER General Instructions [facility] VisitID: [id number] [place] [address] 46y, M Registration Date/Time: 08/17/2016 08/17/2016 07:09 BP: 144/88. HR: 79. RR: 15. O2 saturation: 96%. Temp: 98.7 F. Pain level now: 5/10. Minor hemoptysis (acute). Blood pressure normal. Oxygen saturation normal. Acute bronchitis. Acute bronchospasm INSTRUCTIONS Warnings: GENERAL WARNINGS: Return or contact your physician immediately if your condition worsens or changes unexpectedly, if not improving as expected, or if other problems arise. Specifically return if pain, vomiting, bleeding, breathing difficulty or fever. Your Current Medications: CONTINUE TAKING THE FOLLOWING MEDICATIONS: Albuterol Sulfate HFA Inhalation. ASA Oral : 81 mg daily. Zyrtec*. Prescription Medications: Phenergan w/ Codeine 10mg / 6.25mg per 5 mL: take 1-2 teaspoons every 6 hours as needed for pain or cough. Dispense sixty (60) mL. No refill. Substitution is permissible. Follow-up: Return to the emergency department as needed. Follow up with your doctor in three days. Reason for referral: recheck today's concerns. Summary of care provided to patient via paper. Screening today revealed the patient's blood pressure to be in the normal range. The patient should follow up with a primary care provider for blood pressure management. Understanding of the discharge instructions verbalized by patient. ADDITIONAL INFORMATION Bronchitis, Viral (Adult: No Abx) You have a viral bronchitis. This illness is contagious during the first few days and is spread through the air by coughing and sneezing, or by direct contact (touching the sick person and then touching your own eyes, nose, or mouth). Most viral illnesses resolve within 10-14 days with rest and simple home remedies, although they may sometimes last for several weeks. Antibiotics will not kill a virus and are generally not prescribed for this condition. Home Care: If symptoms are severe, rest at home for the first 2-3 days. When resuming activity, don't let yourself become overly tired. Do not smoke and avoid the smoke of others. You may use acetaminophen (Tylenol) or ibuprofen (Motrin, Advil) to control fever or pain, unless another pain medicine was prescribed. [NOTE: If you have chronic liver or kidney disease or ever had a stomach ulcer or GI bleeding, talk with your doctor before using these medicines.] (Aspirin should never be used in anyone under 18 years of age who is ill with a fever. It may cause severe liver damage.) Your appetite may be poor so a light diet is fine. Avoid dehydration by drinking 6-8 glasses of fluids per day (water, sport drinks such as Gatorade, juices, tea, soup, etc.). Extra fluids will help loosen secretions in the nose and lung. [id number] cold medicines will not shorten the length of the illness, but may be helpful for cough (Robitussin DM), sore throat (Chloraseptic lozenges or spray), nasal and sinus congestion (Actifed or Sudafed). [NOTE: Do not use decongestants if you have high blood pressure.] Follow Up with your doctor or as directed by our staff if you are not improving over the next week. NOTE: If you are age 65 or older, or if you have chronic asthma or COPD, we recommend a PNEUMOCOCCAL VACCINATION every five years and a yearly INFLUENZAVACCINATION (FLU-SHOT) every . Ask your doctor about this. If you had an X-ray, a radiologist will review it. You will be notified of any new findings that may affect your care.] Get Prompt Medical Attention if any of the following occur: Fever over 100.4F (38.0C) for more than three days Trouble breathing, wheezing or pain with breathing Coughing up blood or increased amounts of colored sputum Weakness, drowsiness, headache, facial pain, ear pain or a stiff neck Bronchospasm (Adult) Bronchospasm occurs when the airways (bronchial tubes) go into spasm and contract. This makes it hard to breathe and causes wheezing (a high-pitched whistling sound). Bronchospasm can also cause frequent coughing without the wheezing sound. Bronchospasm is due to irritation, inflammation or allergic reaction of the airways. People with asthma get bronchospasm. However, not everyone with bronchospasm has asthma. Being exposed to harmful fumes, a recent case of bronchitis, or a flare-up of chronic emphysema (COPD) may cause the airways to spasm. An episode of bronchospasm may last 7-14 days. Medicine may be prescribed to relax the airways and prevent wheezing. Antibiotics will be prescribed only if your doctor thinks there is a bacterial infection. Antibiotics do not help a viral infection. Home Care: Drink lots of water or other fluids (at least 10 glasses a day) during an attack. This will loosen lung secretions and make it easier to breathe. If you have heart or kidney disease, check with your doctor before you drink extra amounts of fluids. Take prescribed medicine exactly at the times advised. If you have a hand-held inhaler or aerosol breathing medicine, do not use it more than once every four hours, unless told to do so. If prescribed an antibiotic or prednisone, take all of the medicine even if you are feeling better after a few days. Do not smoke. Avoid being exposed to the smoke of others. If you were given an inhaler, use it exactly as directed. If you need to use it more often than prescribed, your condition may be getting worse. Contact your doctor or this facility. Follow Up With Your Doctor, Or As Directed. [ NOTE: If you are age 65 or older, or if you have chronic asthma or COPD, we recommend a PNEUMOCOCCAL VACCINATION every five years and a yearly INFLUENZA VACCINATION (FLU-SHOT) every . Ask your doctor about this.] Get Prompt Medical Attention If Any Of The Following Occur: Increased wheezing or shortness of breath Need to use your inhalers more often than usual without relief Fever of 100.4F (38C) or higher, or as directed by your healthcare provider Coughing up lots of dark-colored or bloody sputum (mucus) Chest pain with each breath You do not start to improve within 24 hours Hemoptysis Hemoptysis is the medical term for "coughing up blood". There are many causes for this including minor illnesses such as bronchitis. Hemoptysis can also be an early sign of more serious illnesses such as a pneumonia, blood clot in the lung, cancer, tuberculosis and pneumonia. Less common causes of hemoptysis can be hard to diagnose in an emergency department or a clinic. Therefore, further testing will be needed if the symptoms continue. Home Care: Avoid exposure to cigarette smoke. Smoke irritates the bronchial passages. Unless you are taking daily aspirin to prevent stroke or heart attack, avoid aspirin and products that contain aspirin. Aspirin affects the clotting system and may make hemoptysis worse. If you have a lung infection, extra fluid will help loosen secretions in the lungs. [id number] cough medicines which contain "dextromethorphan" (such as Robitussin DM) may help reduce coughing. If you were prescribed an antibiotic, take it until it is all gone. Take it even if you are feeling better after only a few days. Follow Up with your doctor or as advised if the bloody cough continues for more than 24 hours. Get Prompt Medical Attention if any of the following occur: Coughing up more than 1 cup of blood within 24 hours Fever over 100.4F (38.0C) for more than three days Trouble breathing, wheezing or pain with breathing Chest pain or chest pressure Feeling very weak or fainting You have been given the following additional information: Bronchitis, No Antibiotic (Adult) Bronchospasm (Adult) Hemoptysis (Electronically signed by Elpidio Espinoza Dr. 08/18/2016 17:51)
== END 2016-08-17 09:15 | disposition home or self-care (01) ==
LOC: ED SRH 07:00
DX: R04.2 Hemoptysis (principal); J20.9 Acute bronchitis, unspecified; Z79.51 Long term (current) use of inhaled steroids; Z88.0 Allergy status to penicillin
CPT/HCPCS: 90100; 90616; 91556; 94001; 94060; 95059